=== PATIENT | female | born 1990 | race Caucasian/White ===

== ENCOUNTER 2016-04-29 07:36 | Emergency (ER) | payer BC, OTHER ==
[2016-04-29] MEDS: IPRATROPIUM/ALBUTEROL SULFATE 3 ML AMPUL.NEB NEB ONE (08:05)
--- NOTE | 2016-04-29 08:55 | ED Physician Documentation ---
General Adult - HISTORIAN Historian: patient - HPI Stated Complaint: short of breath Chief Complaint: General Adult Onset: hours Timing: still present Further Comments: yes (25 year old female patient presents with complaints of congestion, weakness, nasal congestion, and SOB. Patient states she has asthma , used her inhaler last and today, but it has not helped. Patient states her inhaler is 2-3 years old.) - ROS CONST: weakness, chills. denies: fever, recent illness, weight loss EYES/ENT: nasal drainage, nasal congestion. denies: problems with vision CVS/RESP: shortness of breath. denies: chest pain, cough GI/: none MS/SKIN/LYMPH: none NEURO/PSYCH: denies: headache, fainting, dizziness, tingling, numbness, difficulty walking, difficulty with speech, anxiety, depression, other - PAST HX Past History: asthma Allergies/Adverse Reactions: Allergies Allergy/AdvReac Type Severity Reaction Status Date / Time No Known Allergies Allergy Verified 04/29/16 07:48 Home Medications: Ambulatory Orders Medication Instructions Recorded Albuterol Sulfate [ProAir 1 inh INH PRN PRN 04/29/16 RespiClick] Albuterol Sulfate [Proair HFA] 1 inh IH Q4H PRN #1 [email or web address] 04/29/16 - SOCIAL HX Smoking History: non-smoker - FAMILY HX Family History: No - VITAL SIGNS Vital Signs: Vital Signs Temp Pulse Resp BP Pulse Ox 99.1 F 104 H 20 115/76 97 04/29/16 07:44 04/29/16 07:44 04/29/16 07:44 04/29/16 07:44 04/29/16 07:44 - REVIEWED ASSESSMENTS Nursing Assessment Reviewed: Yes Vitals Reviewed: Yes Progress - Progress Progress: Negative influenza, negative strep, BBS clear, no wheezing. Refilled proair. Written prescription for medrol dose pack discharged with patient. Start medrol dose pack if symptoms become worse or do not resolve after refilling your proair ED Results Lab/Radiology - Lab Results Lab Results: Lab Results 04/29/16 04/29/16 08:25 08:25 Influenza Type A Ag Negative (NEGATIVE) Influenza Type B Ag Negative (NEGATIVE) Group A Strep Screen Negative (NEGATIVE) - Orders Orders: ED Orders Category Date Time Status GRP A STREP SCREEN Stat Lab 04/29/16 08:25 Completed INFLUENZA A&B Stat Lab 04/29/16 08:25 Completed THROAT CULTURE Stat Lab 04/29/16 08:25 Received Ipratropium/Albuterol Sulfate [Duoneb] Med 04/29/16 07:49 Discontinued 3 ml NEB NOW ONE General Adult Physical Exam - PHYSICAL EXAM GENERAL APPEARANCE: [id number] N EENT: eye inspection normal, ENT inspection normal, pharynx normal, no signs of dehydration, FABIOLA, no nystagmus, TM's nml RESPIRATORY: no resp distress, chest non-tender, breath sounds normal CVS: reg rate & rhythm, heart sounds normal, equal pulses, no murmur, no gallop , PMI nml, no JVD, no friction rub, 24 ABDOMEN: soft, no organomegaly, normal bowel sounds, no abdominal bruit, no distension SKIN: normal color, warm/dry, NR, INT, PAL, DR EXTREMITIES: non-tender, normal range of motion, no evidence of injury, no edema , J, [employer] NEURO: oriented X3, CN's nml as tested, motor nml, sensation nml, mood/affect nml Discharge Clincal Impression: Asthma Qualifiers: Asthma severity: mild intermittent Asthma complication type: uncomplicated Qualified Code(s): J45.20 - Mild intermittent asthma, uncomplicated Prescriptions: Albuterol Sulfate [Proair HFA] 1 inh IH Q4H PRN #1 [email or web address] PRN Reason: Wheezing Referrals: Primary Doctor,No [Primary Care Provider] - 2 Days Additional Instructions: Refill your inhaler. Use 1-2 puffs every 2-4 hour as needed for cough, wheezing Discard your old one. If your wheezing continues tomorrow, start the medrol dose pack Home Medications: Ambulatory Orders Albuterol Sulfate [ProAir RespiClick] 1 inh INH PRN PRN 04/29/16 Albuterol Sulfate [Proair HFA] 1 inh IH Q4H PRN #1 [email or web address] 04/29/16 Condition: Stable Disposition: 01 HOME, SELF-CARE Decision to Admit: NO Decision Time: 08:52
[2016-04-29 09:18] VITALS: BP 115/73
== END 2016-04-29 09:08 | disposition home or self-care (01) ==
LOC: ED 07:36
DX: J45.20 Mild intermittent asthma, uncomplicated (principal)
CPT/HCPCS: 87070; 87400; 87880; 94640; 99283; 99284

== ENCOUNTER 2017-08-23 06:56 | Day surgery (SDC) | payer OTHER ==
--- NOTE | 2017-08-23 16:27 | GI Report ---
REFERRING PHYSICIAN: Dr. Raissa Hawthorne AUDIO NARRATOR: Vipin Powers MD PROCEDURE MEDICATION: Propofol as per anesthesia. INDICATIONS: Patient is a 26-year-old who has been having epigastric discomfort. It gets worse after eating. It has been severe over the last several weeks. She was in the emergency room at [facility] on August 13. Her CAT scan was unremarkable. White count was normal but she was acidotic. Her CO2 was 21. Her blood glucose was normal. She does not smoke. She denies taking nonsteroidal's, though she has been on a Ketogenic diet and has lost 35 pounds in weight on it. Apparently, the diet has a large component of fat. In addition, she is taking vitamin C, B-Complex with C, biotin, [place], Flax seed , Prozac, Green Tea Extract, multivitamin with iron, omeprazole she was taking twice a day but was not taking it before the meal. She is also taking Perfect Keto with MCT oil. On exam before the procedure, she does have some epigastric tenderness to palpation. She is not tender over the liver. Her liver enzymes were normal. PROCEDURE PERFORMED: Endoscopy with biopsies. PROCEDURE: An Olympus video endoscope is passed through the esophagus under direct visualization. She has maybe grade A esophagitis of the GE junction. The stomach is entered. There is a lot of bile present. She has diffuse gastritis with erythema. Biopsies were taken for pathology. Maybe some element of gastroparesis because there was a fair amount of fluid still in her stomach. Pylorus was open. Duodenal bulb and first and second part of the duodenum were examined and had a little friability. We did take biopsies to submit to pathology. Patient tolerated the procedure well. FINDINGS: 1. Diffuse gastritis with gastroparesis. A lot of bile present. Biopsies pending. 2. Mild esophagitis. 3. Duodenitis. Biopsies pending. RECOMMENDATIONS: 1. Her PPI should be taken 30 minutes before breakfast and before supper. 2. Would stop the ranitidine. 3. Have her take an antacid after meals such as Tums or Gaviscon. 4. I will have her stop all of her supplements for the time being. 5. I will have her maybe modify her diet so that it is not as ketogenic because it is producing acidosis. Possibly increase a little more protein and decreasing slightly the amount of fat in the diet. 6. Small frequent meals. 7. Pending the biopsy results, ultrasound of the right upper quadrant looking at the gallbladder would be another consideration. cc: Dr. Raissa HEAD
== END 2017-08-23 06:58 ==
LOC: OPSURG 06:56
PROVIDERS: ATTEND Internal Medicine Gastroenterology
DX: K29.60 Other gastritis without bleeding (principal); K31.84 Gastroparesis; K20.8 Other esophagitis; K29.80 Duodenitis without bleeding
CPT/HCPCS: 81025; J2001; J2704; J7120; 43239; S1016